=== PATIENT | female | born 1990 | race Caucasian/White ===

== ENCOUNTER 2017-05-23 14:31 | Outpatient (CLI) | END 2017-05-23 23:50 | disposition home or self-care (01) ==

== ENCOUNTER 2017-05-24 23:23 | Outpatient (CLI) | END 2017-05-25 00:59 | disposition home or self-care (01) ==

== ENCOUNTER 2017-06-24 13:48 | Inpatient (IN) | END 2017-06-27 18:45 | disposition home or self-care (01) | DRG 775 ==

== ENCOUNTER 2018-11-07 13:57 | Inpatient (IN) | payer MEDICAID ==
[~2018-11-07] VITALS: Ht 152.4 cm; Wt 54.3 kg
[~2018-11-07 13:57] MED LIST: PNV11TAB PO
[2018-11-07 14:10] VITALS: Ht 152.4 cm; Wt 54.3 kg
[2018-11-07 14:11] VITALS: BP 101/66; PULSE 94; RESP 20
--- NOTE | 2018-11-07 15:24 | TRIAGE ---
OB Triage Datetime Report Generated by CPN: 11/07/2018 15:24 Datetime: 11/07/2018 14:52 Vaginal Exam Dilatation (cms): 5.0 Effacement (%): 70 Station: -2 Exam By: MAY Vaginal Bleeding: None Cervix, Consistency: Soft Cervix, Position: Posterior Presentation 'A': Cephalic Datetime: 11/07/2018 14:45 Labor Evaluation Frequency: X4 Monitor Mode: External Duration (sec)2399: 60-100 Quality: Strong Pattern: Normal: <= 5 Contractions in 10 Minutes Resting Tone [place]: Relaxed Heart Rate FHR Baseline Rate: 150 Monitor Mode: External US FHR Baseline Changes: No Baseline Change Variability: Moderate 6-25 bpm Accelerations: 15X15 Decelerations: None Category: Category I Pain Assessment Pain Scale: 4 Pain Presence: Intermittent Pain Type: Contraction Pain Location: Abdomen Pain Goal: 2 Datetime: 11/07/2018 14:13 Assessment Type: Triage Time of Arrival: 11/07/2018 13:51 EGA: 40.1 Chief Complaint: UC/S Movement: Present Contractions: Occasional Rupture of Membranes: Denies Vaginal Bleeding: None Vaginal Discharge: Denies Recent Sexual Intercouse: Denies Abdominal Trauma: Not Applicable Patient Complaints: Contractions Time Provider Notified: 11/07/2018 15:05 Provider Notified: DR. SWIFT Initial Plan: EFM Maternal Assessment Level of Consciousness: Keenly Alert, Responsive DTR's/Clonus: DTRs 2+; No Clonus Headache: Denies Blurred Vision: No Respiratory Effort: Unlabored; Regular Rhythm; Equal Expansion Nausea/Vomiting: Denies RUQ Epigastric Pain: Denies Lower Extremities Edema: None Degree: None Upper Extremities Edema: None Degree: None Facial Edema: None Fall Risk Assessment History of Falling: (0) No Secondary Diagnosis: (0) No Ambulatory Aid: (0) Bedrest/Nurse Assist IV Therapy: (0) No Gait: (0) Normal/Bedrest/Immobile Mental Status: (0) Oriented to Own Ability Fall Score: 0 Fall Risk Score Definition: No Risk: No action required Monitor Mode: External Monitor Mode: External US Pain Assessment Pain Scale: 4 Pain Presence: Intermittent Pain Type: Contraction Pain Location: Abdomen Pain Goal: 2 Membrane Status: Intact Datetime: 06/20/2018 13:48 Fall Score: 0 Fall Risk Score Definition: No Risk: No action required Datetime: 06/20/2018 13:47 EGA: 20.1
[2018-11-07] MEDS ORDERED: MINERAL OIL LIGHT 10 ML VIAL TOP PRN (15:30)
[2018-11-07] MEDS ORDERED: CARBOPROST 250 MCG INJ IM PRN ×2 (15:30→23:00)
[2018-11-07] MEDS ORDERED: OXYCODONE/ASPIRIN (4.88/325) TAB PO PRN (15:30)
[2018-11-07] MEDS ORDERED: OXYTOCIN 30 UNITS/LR 500 ML IV SCH ×3 (15:30→22:45)
[2018-11-07] MEDS ORDERED: IBUPROFEN 600 MG TAB PO PRN (15:30)
[2018-11-07] MEDS ORDERED: METHYLERGONOVINE 0.2 MG INJ IM PRN ×2 (15:30→23:00)
[2018-11-07] MEDS ORDERED: LIDOCAINE 1% (MPF) 30 ML INJ INJ PRN (15:30)
[2018-11-07] MEDS ORDERED: OXYTOCIN 30 UNITS/LR 500 ML IV PRN ×2 (15:30→23:00)
[2018-11-07] MEDS ORDERED: BUTORPHANOL 2 MG INJ IV PRN (15:30)
[2018-11-07] MEDS ORDERED: MISOPROSTOL 200 MCG TAB PR PRN ×2 (15:30→23:00)
[2018-11-07] MEDS: LACTATED RINGER'S 1,000 ML IV SCH ×2 (16:15→23:10)
--- NOTE | 2018-11-07 17:14 | HP ---
Date/Time of Note Date/Time of Note DATE: 11/07/18 TIME: 17:03 OB - History Hx of Present Free Text/Dictation 28y.o here at 40w1d c/o irregular contracions with intact membrane. Initial VE 5cm/70/-2 post cervix EFM shows irregulat uc CAT I tracing GBS neg EFW 3297gm STEVE 8.4 BPP 8/8 admitted for expectant management,poss augmentation. Chief Complaint: UC's Estimated Due Date: Nov 06, 2018 : 3 Para: 1 Spontaneous : 1 Therapeutic : 0 Care: Other Ultrasounds: Other Obstetrical Complications: None Medical Complications: None Past Family/Social History * Past Medical, Surgical, Family and Obstetric Histories reviewed from chart. Blood Type: O+ Rubella: immune RPR/VDRL: Negative GBS Status: Negative HBsAG: Negative OB Admission Exam Vital Signs Vital Signs Vital Signs Date Temp Pulse Resp B/P (MAP) Pulse Ox O2 O2 Flow FiO2 Time Delivery Rate 11/07/18 98.4 94 20 101/66 Room Air 14:11 (78) Physical Exam HEENT: WNL Heart: Rhythm Normal Lungs: Clear, Equal Abdomen: WNL Extremities: Normal Reflexes: Normal Cervical Dilatation: 5cm Effacement: 75% Station: -2 Membranes: Intact Amniotic Fluid: Unevaluable Heart Rate: 150's Accelerations: Accelerations Present Decelerations: No Decelerations Varibility: Moderate Contractions on Admission: >10 Minutes Apart Intensity: Mild Last 72 hours Lab Results CBC & BMP 11/07/18 15:30 OB Assessment/Plan Reason for admission: active labor Other Assessment: IUP 40w1d Plan: Expectant Management, Other (poss augmnetation) LIDIA SWIFT MD Nov 07, 2018 17:13
--- NOTE | 2018-11-07 18:51 | PREAC ---
Date/Time of Note Date/Time of Note DATE: 11/07/18 TIME: 18:50 Anesthesia Eval and Record Evaluation Time Pre-Procedure Interview DATE: 11/07/18 TIME: 18:50 Age 28 Sex female NPO: 8 hrs Preoperative diagnosis Labor Pain Planned procedure Labor Epidural Past Medical History Past Medical History: Includes Heme: Anemia : : (2), Para: (1), Gestational age: (40) Surgery & Anesthesia Issues No known issue Meds Anticoagulation: No Beta Vasyl within 24 hr: No Reason Beta Vasyl not given: Pt. not on B-Vasyl Reported Medications [id number] ( 19) 1 Each Tablet, 1 TAB PO DAILY, TAB 05/23/17 Current Medications Lactated Ringer's 1,000 ml @ 125 mls/hr Q8H IV Last administered on 11/07/18at 16:15; Admin Dose 125 MLS/HR; Start 11/07/18 at 15:10 Butorphanol Tartrate (Stadol) 2 mg Q2H PRN IV .PAIN SCALE 6-10; Start 11/07/18 at 15:30 Lidocaine (Xylocaine 1% (Mpf)) 30 ml ONCE PRN INJ .EPISIOTOMY; Start 11/07/18 at 15:30 Oxytocin/Lactated Ringer's 500 ml @ 500 mls/hr ONCE POST IV ; Start 11/07/18 at 15:30 Oxytocin/Lactated Ringer's 500 ml @ 125 mls/hr POST IV ; Start 11/07/18 at 15:30 Ibuprofen (Motrin) 600 mg ONCE PRN PO .PAIN 1-5; Start 11/07/18 at 15:30 Oxycodone/Aspirin (Percodan) 2 tab ONCE PRN PO .PAIN 6-10; Start 11/07/18 at 15:30 Oxytocin/Lactated Ringer's 500 ml @ 0 mls/hr ONCE PRN IV .VAGINAL BLEEDING; Start 11/07/18 at 15:30 Methylergonovine Maleate (Methergine) 0.2 mg ONCE PRN IM .VAGINAL BLEEDING; Start 11/07/18 at 15:30 Carboprost Tromethamine (Hemabate) 250 mcg ONCE PRN IM .VAGINAL BLEEDING; Start 11/07/18 at 15:30 Misoprostol (Cytotec) 1,000 mcg ONCE PRN OK .VAGINAL BLEEDING; Start 11/07/18 at 15:30 Oxytocin/Lactated Ringer's 500 ml @ 0 mls/hr FOR AUGMENTATION IV Last administered on 11/07/18at 16:18; Admin Dose 1 MLS/HR; Start 11/07/18 at 15:30 Mineral Oil (Muri-Lube) 10 ml PRN PRN TOP lubricant; Start 11/07/18 at 15:30 Meds reviewed: Yes Allergies Coded Allergies: No Known Allergy (Unverified , 06/24/17) Allergies Reviewed: Yes Labs/Studies Labs Reviewed: Reviewed by anesthesiologist Result Diagram: 11/07/18 1530 Laboratory Tests 11/07/18 15:30 Blood Bank Test 11/07/18 15:30 Blood Type O POSITIVE Rh Immune Globulin Candidate NO test: Positive Studies: ECG (n/a), CXR (n/a) Pre-procedure Exam Last vitals Vital Signs Date Temp Pulse Resp B/P (MAP) Pulse Ox O2 O2 Flow FiO2 Time Delivery Rate 11/07/18 98.4 94 20 101/66 Room Air 14:11 (78) Airway: Adequate mouth opening, Adequate thyromental dist Mallampati: Mallampati II Teeth: Normal Lung: Normal Heart: Normal ASA Physical Status ASA physical status: 2 Emergency: None Planned Anesthetic Neuraxial: Epidural Planned Pain Management Epidural Pre-operative Attestations Prior to commencing anesthesia and surgery, the patient was re-evaluated, there was verification of: *The patient's identity *The results of appropriate recent lab work and preoperative vital signs *The above evaluation not changing prior to induction *Anesthetic plan, risk benefits, alternative and complications discussed with patient/family; questions answered; patient/family understands, accepts and wishes to proceed. KEITH OATES MD Nov 07, 2018 18:51
[2018-11-07] MEDS ORDERED: NALOXONE (0.4 MG/ML) INJ IV PRN (19:00)
[2018-11-07] MEDS ORDERED: FENTAnyl 2MCG/ML-ROPIV 0.2% 100 ML BAG EPI SCH (19:00)
[2018-11-07] MEDS ORDERED: FENTAnyl 2MCG/ML-ROPIV 0.2% 100 ML ONE (19:07)
--- NOTE | 2018-11-07 19:12 | PAC ---
Date/Time of Note Date/Time of Note DATE: 11/07/18 TIME: 19:12 Post-Anesthesia Notes Post-Anesthesia Note Last documented vital signs Vital Signs Date Temp Pulse Resp B/P (MAP) Pulse Ox O2 O2 Flow FiO2 Time Delivery Rate 11/07/18 98.4 94 20 101/66 100 Room Air 19:11 (78) Activity: WNL Respiratory function: WNL Cardiovascular function: WNL Mental status: Baseline Pain reasonably controlled: Yes Hydration appropriate: Yes Nausea/Vomiting absent: Yes KEITH OATES MD Nov 07, 2018 19:12
[2018-11-07] MEDS: OXYTOCIN 30 UNITS/LR 500 ML IV SCH (21:45)
[2018-11-07] MEDS: LACTATED RINGER'S 1,000 ML IV* SCH (22:45)
--- NOTE | 2018-11-07 22:45 | LDN ---
Date/Time of Note Date/Time of Note DATE: 11/07/18 TIME: 22:23 Delivery Summary Weeks of Gestation Term gestation Placenta Delivered: Spontaneously Meconium: none Episiotomy: No Anesthesia type: Epidural Estimated blood loss: 100 Sponge & Needle done & correct: Yes All needle counts correct: Yes Any foreign bodies felt in the: No Infant Delivery Information Sex Infant Sex: female Apgars 1 Minute: 9 5 Minute: 9 Suctioning Nose & mouth suctioned at sam[place]: Yes Delee suction performed: No Umbilical Cord Umbilical cord with: 2 Vessels Cord presentations: no nuchal cord Cord Blood was obtained: Yes Mother & Baby Disposition Disposition Baby's weight 7 pounds 2 ounces/ 3230 g Mom & Baby to Maternity; Good: Yes Baby to NICU: No Copies To: CC: DENISHA SHAH BAHAREH MD Nov 07, 2018 22:35
[2018-11-07] MEDS ORDERED: WITCH HAZEL/GLYCERIN PAD PR PRN (23:00)
[2018-11-07] MEDS ORDERED: MAGNESIUM HYDROXIDE 30ML CUP PO PRN (23:00)
[2018-11-07] MEDS ORDERED: BENZOCAINE 20% 56 ML SPRAY TOP PRN (23:00)
[2018-11-07] MEDS ORDERED: DIBUCAINE 1% 30 GM OINT TOP PRN (23:00)
[2018-11-07] MEDS ORDERED: LANOLIN HPA 1 PKT TOP PRN (23:00)
[2018-11-07] MEDS ORDERED: ONDANSETRON 4 MG INJ IV PRN (23:00)
[2018-11-07] MEDS ORDERED: SENNA/DOCUSATE NA (8.6MG/50MG) TAB PO PRN (23:00)
[2018-11-07] MEDS ORDERED: ACETAMINOPHEN 325 MG TAB PO PRN ×2 (23:00)
[2018-11-07 23:20] VITALS: BP 119/71; PULSE 56; RESP 17
[2018-11-08] MEDS: OXYTOCIN 30 UNITS/LR 500 ML IV SCH (02:26)
[2018-11-08 04:00] VITALS: BP 100/55; PULSE 68; RESP 18
[2018-11-08] MEDS: LACTATED RINGER'S 1,000 ML IV SCH (05:49)
[2018-11-08] MEDS: LACTATED RINGER'S 1,000 ML IV* SCH (05:49)
[2018-11-08 08:15] VITALS: BP 103/56; PULSE 51; RESP 20
[2018-11-08] MEDS: IBUPROFEN 600 MG TAB PO PRN (15:41)
[2018-11-08 16:15] VITALS: BP 99/77; PULSE 70; RESP 18
[2018-11-08 20:15] VITALS: BP 108/66; PULSE 60; RESP 18
--- NOTE | 2018-11-08 23:22 | QN ---
Documentation Comment PPD #1 s/p 11/07 PM Pt is doing well. C/o minimal bleeding and no pain. T=98.3 BP 99/77 Fundus firm. Lochia minimal. WBC 9.6 Hgb 10.2 Plts 252K P: Continue care and d/c tomorrow. ANA ARMENTA MD Nov 08, 2018 23:22
[2018-11-09] MEDS: IBUPROFEN 600 MG TAB PO PRN ×2 (00:25→06:08)
[2018-11-09 03:57] VITALS: BP 105/58; PULSE 70; RESP 18
[2018-11-09 08:00] VITALS: BP 96/60; PULSE 70; RESP 16
--- NOTE | 2018-11-09 21:34 | DS ---
Date/Time of Note Date/Time of Note DATE: 11/09/18 TIME: 21:32 Obstetrical Discharge Record Final Diagnosis Final Diagnosis: Term delivered Other Final Diagnosis 28-year old s/p normal delivery at 40 wks and one day. PPD#2. course was unremarkable. She is ambulating and tolerating regular diet. She is voiding without difficulty. Pain is controlled on current medication. - AF, VSS - Continue care - Discharge home - Rx and instruction given - Follow up in one and 6 weeks Vaginal Delivery Obstetrical Delivery: Spontaneous Complications Augmentation: Yes Condition on Discharge Physical Assessment Last Vitals: Vital Signs Date Temp Pulse Resp B/P (MAP) Pulse Ox O2 O2 Flow FiO2 Time Delivery Rate 11/09/18 97.9 70 16 96/60 (72) Room Air 08:00 Voiding: Yes Bowel Movement: Yes Breast: Soft, non-tender Fundus: Firm Calf Tenderness: No Patient Condition: Stable DENISHA SHAH Nov 09, 2018 21:34
--- NOTE | 2018-11-10 13:27 | DELSUM ---
Delivery Summary A-C Datetime Report Generated by CPN: 11/10/2018 13:27 DELIVERY PERSONNEL Marketing Communications Manager: Dries, Aureliano MATERNAL INFORMATION Delivery Anesthesia: Epidural Medications in Delivery: LR WITH 30 UNITS PITOCIN. Delivery QBL (ml): 100 Placenta Cultured: No Maternal Complications: None LABOR SUMMARY EDC: 11/06/2018 00:00 No. Babies in Womb: 1 Attempted: No Labor Anesthesia: Epidural LABOR INFORMATION Reason for Induction: Not Applicable Onset of Labor: 11/07/2018 18:15 Complete Dilatation: 11/07/2018 20:27 Oxytocin: Augmentation Group B Beta Strep: Negative Antibiotics # of Doses: 0 Steroids Given: None Reason Steroids Not Administered: Not Applicable MEMBRANES Membranes Rupture Method: Artificial Rupture of Membranes: 11/07/2018 16:48 Length of Rupture (hr): 4.35 Amniotic Fluid Color: Clear Amniotic Fluid Amount: Small Amniotic Fluid Odor: None STAGES OF LABOR Stage 1 hr: 2 Stage 1 min: 12 Stage 2 hr: 0 Stage 2 min: 42 Stage 3 hr: 0 Stage 3 min: 3 Total Time in Labor hr: 2 Total Time in Labor min: 57 VAGINAL DELIVERY Episiotomy: None Laceration Extension: N/A Laceration Type: None Laceration Repair: Not Applicable Initial Vag Sponge Count: 10 Final Vag Sponge Count: 10 Initial Vag Sharps Count: 1 Final Vag Sharps Count: 1 Sponge Count Correct: Yes; Vaginal Sweep Performed Sharps Count Correct: Yes BABY A INFORMATION Delivery Date/Time: 11/07/2018 21:09 Method of Delivery: Vaginal Born in Route : No : N/A Forceps: N/A Vacuum Extraction: N/A Shoulder Dystocia : N/A SHOULDER DYSTOCIA BABY A Infant Delivery Date/Time: 11/07/2018 21:09 PRESENTATION/POSITION BABY A Presentation: Cephalic Cephalic Presentation: Vertex Vertex Position: Left Occipital Posterior Breech Presentation: N/A PLACENTA INFORMATION BABY A Placenta Delivery Time : 11/07/2018 21:12 Placenta Method of Delivery: Spontaneous Placenta Status: Delivered SCORES BABY A Heart Rate 1 min: >100 bpm Resp Effort 1 min: Good Cry Reflex Irritability 1 min: Cough/Sneeze/Pulls Away Muscle Tone 1 min: Active Motion Color 1 min: Body [place], Extremit Blue Resuscitation Effort 1 min: Tactile Stimulation SCORE 1 MIN: 9 Heart Rate 5 min: >100 bpm Resp Effort 5 min: Good Cry Reflex Irritability 5 min: Cough/Sneeze/Pulls Away Muscle Tone 5 min: Active Motion Color 5 min: Body [place], Extremit Blue Resuscitation Effort 5 min: Tactile Stimulation SCORE 5 MIN: 9 INFORMATION BABY A Gestational Age at Delivery: 40.1 Gestational Status: Full Term- 39- 40.6 Weeks Outcome : Liveborn, with signs of life Infant Condition : Stable Infant Sex: Female IDENTIFICATION/MEDS BABY A ID Band Number: [id number] ID Band Location: Right Leg; Left Arm Sensor Applied: Yes Sensor Number: [id number] Sensor Location : Cord Clamp Vitamin K Given : Not Given Erythromycin Given: Not Given WEIGHT/LENGTH BABY A Birthweight (gm): 3230 Infant Weight (lb): 7 Infant Weight (oz): 2 Length (in): 19.00 Infant Length (cm): 48.26 CORD INFORMATION BABY A No. Cord Vessels: 2 Nuchal Cord : N/A Cord Blood Taken: No Suction: Mouth; Nose ASSESSMENT BABY A Complications: Decreased Variability; Other Infant Complications- Other: 2 VESSEL CORD. Physical Findings at Delivery: Within Normal Limits Infant Respirations: Appears Normal Electrical Sign Wirer/ALS Called : Yes Infant Care By: Vesna BACON RN Transferred To: Remains with Mother
== END 2018-11-09 12:40 | disposition home or self-care (01) | DRG 807 ==
LOC: OBT 13:57 → L-D 13:59 → OBT 15:05 → PP1 23:11
PROVIDERS: ADMIT Obstetrics & Gynecology; ATTEND Obstetrics & Gynecology
PROC: 10E0XZZ Delivery of Products of Conception, External Approach (ICD-10-PCS; principal; 2018-11-07)
DX: O48.0 Post-term pregnancy (principal); Z37.0 Single live birth; Z3A.40 40 weeks gestation of pregnancy
CPT/HCPCS: 62322; 76815; 76818; 85025; 85610; 85730; 86592; 86900; 86901; 87340; 99464; G0463; J2590; J3010; J7120